=== PATIENT | male | born 1980 | race Hispanic/Latino ===

== ENCOUNTER 2024-02-02 09:07 | Day surgery (SDC) | payer OTHER, SELFPAY ==
[2024-02-02 09:33] VITALS: BP 117/83; PULSE 57; RESP 16; TEMP 35.6; O2SAT 96
--- NOTE | 2024-02-02 10:24 | P.HP_ITS ---
History of Present Illness History of Present Illness Date Patient Seen: 02/02/24 Chief complaint: Screening Colonoscopy Narrative: Screening colonoscopy [facility] Social History alcohol intake: current Meds Home Medications and Allergies Home Medications Medication Instructions Recorded Confirmed Type amlodipine 10 mg-benazepril 20 mg 1 cap PO DAILY blood pressure 02/02/24 02/02/24 History capsule Allergies Allergy/AdvReac Type Severity Reaction Status Date / Time No Known Drug Allergies Allergy Verified 02/02/24 09:29 Exam Vital Signs (past 8 hours): - 02/02/24 09:33 Temperature 96.1 F L Pulse Rate 57 L Respiratory Rate 16 Blood Pressure 117/83 Pulse Oximetry 96 Oxygen Delivery Method Room Air Oxygen Delivery Method Room Air Narrative Exam Narrative: Oropharynx free of lesions Assessment & Plan Assessment & Plan narrative: Need for his 1st screening colonoscopy. Risks, benefits, alternatives have been explained. Time-Based Coding :: [TOTAL MINUTES] spent with patient and on the chart (including review of chart, obtaining history, exam, reviewing outside data, placing orders, documenting exam and treatment plan, and counseling patient) on [DATE].
--- NOTE | 2024-02-02 10:26 | PM.OP.COLON ---
Operative Date/Time/Diagnoses Date of procedure: 02/02/24 Pre-op diagnosis: See indication and findings Procedure & Clinicians Study performed: Colonoscopy Indications: Screening diffuse Surgeon: Clotilde Pittman Procedure Notes Procedure in detail: After informed consent was obtained the patient was placed in left lateral decubitus position. The video colonoscope was introduced the rectum slowly advanced cecum. Preparation was good. On slow withdrawal mucosa was carefully examined. The scope was removed. The patient tolerated procedure well. Blood loss none Complications none Sedation mac Findings 1. Normal colonoscopy to cecum Patient should have follow-up colonoscopy in 10 years
[2024-02-02 10:27] VITALS: BP 116/78; PULSE 12; RESP 96; TEMP 36.1
[2024-02-02 10:30] VITALS: BP 119/81; PULSE 24; RESP 95
[2024-02-02 10:31] VITALS: BP 116/87; PULSE 66; RESP 12; O2SAT 94
== END 2024-02-02 10:44 | disposition home or self-care (01) ==
PROVIDERS: Referring Provider Internal Medicine Gastroenterology; Visit Provider Internal Medicine Gastroenterology
PROC: 0DJD8ZZ Inspection of Lower Intestinal Tract, Via Natural or Artificial Opening Endoscopic (ICD-10-PCS; CPT 45378; principal; 2024-02-02 10:30)
DX: Z12.11 Encounter for screening for malignant neoplasm of colon (principal)
CPT/HCPCS: 45378; J2704